=== PATIENT | female | born 1965 | race Caucasian/White ===

== ENCOUNTER 2016-06-04 05:39 | Day surgery (SDC) | payer OTHER ==
[~2016-06-04 05:39] MED LIST: ADVIL PM CAPLET1 TAB PO; ASMANEX220 MC1 INH; BACTRIM DS TAB1 EACH PO; CALCIUM + D3 E1 EAC2 PO; CLA1000 MG PO; CLONIDINE HCL0.1 M2 PO; DOCUSATE SODIU100 M2 PO; FLOVENT HFA12 GM IH; IBUPROFEN PM C1 EAC1 PO; LEXAPRO20 M2 PO; MOBIC15 M2 PO; MULTIVITAMINS1 EAC6 PO; NORCO 5/325 TAB1 TAB PO; PROVENTIL HFA6.7 GM IH; SINGULAIR10 M1 PO; SYNTHROID137 MC1 PO; TAMOXIFEN CITRA20 M1 PO; TYLENOL PM EX-1 EAC1 PO; TYLENOL PM EX-1 EAC4 PO; VENTOLIN HFA18 G2 PO; VITAMIN D35000 UNI2 PO; VITAMIN E400 UNI8 PO; ZYRTEC1010 PO; [UNRECOGNIZED DRUG - OTHER] PO
== END 2016-06-04 13:25 ==
LOC: SRG 05:39 → SHSB 05:42 → ORW 07:28 → PACU 10:03 → SHSB 11:00
PROC: 0HWT0JZ Revision of Synthetic Substitute in Right Breast, Open Approach (ICD-10-PCS; principal; 2016-06-04)
PROC: 0HWU0JZ Revision of Synthetic Substitute in Left Breast, Open Approach (ICD-10-PCS; 2016-06-04)
DX: T85.42XA Displacement of breast prosthesis and implant, initial encounter (principal); M19.90 Unspecified osteoarthritis, unspecified site; F41.9 Anxiety disorder, unspecified; J45.909 Unspecified asthma, uncomplicated; F10.10 Alcohol abuse, uncomplicated; E89.0 Postprocedural hypothyroidism; Z79.899 Other long term (current) drug therapy; Z79.811 Long term (current) use of aromatase inhibitors; Z87.891 Personal history of nicotine dependence; Z85.3 Personal history of malignant neoplasm of breast; Z90.13 Acquired absence of bilateral breasts and nipples; Z90.710 Acquired absence of both cervix and uterus; Z98.890 Other specified postprocedural states
CPT/HCPCS: C1781; C1789; J0690; J1170; J3010